=== PATIENT | male | born 1945 | race Caucasian/White ===

== ENCOUNTER 2023-01-20 07:57 | Day surgery (SDC) | payer MEDICARE, OTHER ==
[~2023-01-20] VITALS: Ht 175.3 cm; Wt 83.9 kg
[~2023-01-20 07:57] MED LIST: ALLERGY RE50 MCG/ACT; ATORVASTATIN CA40 MG PO; CITALOPRAM10 M1 PO; COZAAR50 MG PO; ESCITALOPRAM OX10 MG PO; LEXAPRO10 MG PO; LIPITOR40 M1 PO; NORVASC10 M1 PO
[2023-01-20 10:09] VITALS: BP 153/83
== END 2023-01-20 11:00 | disposition home or self-care (01) ==
LOC: ENDO 07:57 → ORM 08:40 → ENDO 08:40 → ORM 09:30 → ENDO 09:40
PROVIDERS: ATTEND Surgery
PROC: 0DBH8ZX Excision of Cecum, Via Natural or Artificial Opening Endoscopic, Diagnostic (ICD-10-PCS; principal; 2023-01-20)
PROC: 0DBP8ZX Excision of Rectum, Via Natural or Artificial Opening Endoscopic, Diagnostic (ICD-10-PCS; 2023-01-20)
DX: Z12.11 Encounter for screening for malignant neoplasm of colon (principal); D12.0 Benign neoplasm of cecum; K62.1 Rectal polyp; K57.30 Diverticulosis of large intestine without perforation or abscess without bleeding; F32.A Depression, unspecified; I10 Essential (primary) hypertension; K64.2 Third degree hemorrhoids; Z86.010 Personal history of colon polyps; Z80.0 Family history of malignant neoplasm of digestive organs